=== PATIENT | female | born 1975 | race Caucasian/White ===

== ENCOUNTER 2019-05-25 10:45 | Inpatient (IN) ==
[2019-05-19 13:27] LABS: Appearance,Urine CLEAR; Bilirubin,Urine NEG (NEG); Color,Urine STRAW; Glucose,Urine (UA) NEGATIVE (NEG); Ketones,Urine NEG (NEG); Leukocyte Esterase,Urine NEG /uL (NEG); Nitrate,Urine NEG (NEG); Protein,Urine NEG (NEG); Specific Gravity,Urine 1.008 (1.000-1.035); Urine Blood NEG mg/dL (<0.03); Urobilinogen,Urine NEG (NEG)
[2019-05-19 14:21] LABS: Blood Urea Nitrogen 7 mg/dl (6-20); Carbon Dioxide 22 mmol/L (22-30); Chloride 104 mmol/L (96-108); Estimated Average Glucose(eAG) 100 mg/dL; Glomerular Filtration Rate 112; Glucose 88 mg/dL (70-105); Hemoglobin A1C 5.1 % HGB (4.0-6.0)
[2019-05-19 14:23] LABS: Basophils # (Auto) 0 K/mcL (0.0-0.3); Basophils % (Auto) 0.5 % (0.0-2.0); Eosinophils # (Auto) 0.1 K/mcL (0.0-0.7); Eosinophils % (Auto) 0.9 % (0.0-7.0); Granulocytes % (Auto) 66.7 % (38.0-78.0); Hematocrit 39.1 % (36.0-48.0); Hemoglobin 13.1 g/dL (12.0-15.0); Lymphocytes # (Auto) 2.5 K/mcL (1.5-4.8); Lymphocytes % (Auto) 26.4 % (15.5-49.0); Mean Cell Volume 89.3 fL (80.0-100.0); Mean Corpuscular HGB Conc 33.4 g/dL (31.0-36.0); Mean Platelet Volume 8.6 fL (7.4-10.4); Monocytes # (Auto) 0.5 K/mcL (0.1-0.9); Monocytes % (Auto) 5.5 % (1.0-12.0); Platelet Count 226 K/mcL (140-440); RBC 4.38 M/mcL (4.00-5.20); Red Cell Distribution Width 14.3 % (11.5-14.5); WBC 9.4 K/mcL (4.5-11.0)
[~2019-05-25 10:45] MED LIST: 0.9 % SODIUM CHLORIDE 9 ML, KETOROLAC 30 MG, ROPIVACAINE HCL/PF 49.5 ML, EPINEPHrine 0.... IJ SCH; CELECOXIB 200 MG CAPSULE PO SCH; IPRATROPIUM/ALBUTEROL 3 ML AMPUL.NEB NEB PRN; PREGABALIN 75 MG CAPSULE PO SCH; SCOPOLAMINE 1 PATCH PATCH TOPICAL PRN; ceFAZolin 2 GM in DEXTROSE 5% IN WATER 50 ML IV SCH
[2019-05-25] MEDS ORDERED: SCOPOLAMINE 1 PATCH PATCH TOPICAL PRN (11:00)
[2019-05-25] MEDS ORDERED: IPRATROPIUM/ALBUTEROL 3 ML AMPUL.NEB NEB PRN ×2 (11:00→14:40)
[2019-05-25] MEDS ORDERED: TRANEXAMIC ACID 1,000 MG/10 ML VIAL IV ONE ×2 (14:00→15:41)
[2019-05-25] MEDS ORDERED: ROPIVACAINE HCL/PF 20 ML VIAL IJ ONE (14:00)
[2019-05-25] MEDS ORDERED: MIDAZOLAM 2 MG/2 ML VIAL IV ONE (14:00)
[2019-05-25] MEDS ORDERED: GLYCOPYRROLATE 0.2 MG/ML VIAL IV ONE (14:00)
[2019-05-25] MEDS ORDERED: ONDANSETRON 4 MG/2 ML VIAL IV ONE (14:00)
[2019-05-25] MEDS ORDERED: PROPOFOL 200 MG/20 ML VIAL IV ONE (14:00)
[2019-05-25] MEDS ORDERED: fentaNYL 100 MCG/2 ML VIAL IV ONE (14:00)
[2019-05-25] MEDS ORDERED: LIDOCAINE HCL/PF 100 MG/5 ML SYRINGE IV ONE (14:00)
[2019-05-25] MEDS ORDERED: DEXAMETHASONE 10 MG/ML VIAL IV ONE (14:00)
[2019-05-25] MEDS ORDERED: PHENYLEPHRINE 10 MG/ML VIAL IV ONE (14:00)
[2019-05-25] MEDS ORDERED: KETAMINE 100 MG/ML ML IV ONE (14:00)
[2019-05-25] MEDS ORDERED: METOPROLOL TARTRATE 5 MG/5 ML VIAL IV PRN (14:40)
[2019-05-25] MEDS ORDERED: fentaNYL 100 MCG/2 ML VIAL IV PRN (14:40)
[2019-05-25] MEDS ORDERED: ACETAMINOPHEN 1,000 MG/100 ML BOTTLE IV ONE (14:40)
[2019-05-25] MEDS ORDERED: METHOCARBAMOL 1,000 MG/10 ML VIAL IV PRN (14:40)
[2019-05-25] MEDS ORDERED: LABETALOL 5 MG/ML ML IV PRN (14:40)
[2019-05-25] MEDS ORDERED: FLUMAZENIL 0.1 MG/ML ML IV PRN (14:40)
[2019-05-25] MEDS ORDERED: NALOXONE HCL 0.4 MG/ML VIAL IV PRN (14:40)
[2019-05-25] MEDS ORDERED: LACTATED RINGERS 250 ML IV PRN (14:40)
[2019-05-25] MEDS ORDERED: ONDANSETRON 4 MG/2 ML VIAL IV PRN ×2 (14:40→15:41)
[2019-05-25] MEDS ORDERED: BENZOCAINE/MENTHOL 1 LOZENGE PO PRN ×2 (14:40→15:41)
[2019-05-25] MEDS ORDERED: LACTATED RINGERS 1,000 ML IV SCH (14:45)
--- NOTE | 2019-05-25 15:40 | Brief Operative Note ---
Date of procedure: 05/25/19 Pre-op diagnosis: Right knee large osteochondral defect of the medial femoral condyle Post-op diagnosis: same Procedure: Right robotic assisted total knee arthroplasty Grafts/Implants: Yes (Jelly Triathlon CR 2 femur, 2 tibia, 9mm insert, 31 patella) Anesthesia: spinal, GLMA Findings: large medial femoral condyle defect Complications: none Surgeon: Andrew Sousa Popcorn Attendant: Eric Almanza Estimated blood loss (cc): 30 Specimens Removed/Pathology: none sent Condition: stable Disposition: PACU
[2019-05-25] MEDS ORDERED: HYDROmorphone 2 MG/ML VIAL IV PRN (15:41)
[2019-05-25] MEDS ORDERED: FLEETS ADULT ENEMA PR PRN (15:41)
[2019-05-25] MEDS ORDERED: ACETAMINOPHEN 325 MG TABLET PO PRN (15:41)
[2019-05-25] MEDS ORDERED: MAGNESIUM HYDROXIDE 30 ML ORAL.SUSP PO PRN (15:41)
[2019-05-25] MEDS ORDERED: BISACODYL 10 MG SUPP.RECT PR PRN (15:41)
[2019-05-25] MEDS ORDERED: POLYETHYLENE GLYCOL 3350 17 GM PACKET PO PRN (15:41)
[2019-05-25] MEDS ORDERED: BUTALB/ACETAMINOPHEN/CAFFEINE 1 TABLET PO PRN (15:57)
[2019-05-25] MEDS: PROMETHAZINE 25 MG/ML VIAL IV PRN ×2 (16:33→16:47)
--- NOTE | 2019-05-25 16:34 | XRay Report ---
CLINICAL INFORMATION: Postsurgical follow-up TECHNIQUE: AP, lateral, and patellar views COMPARISON: None. FINDINGS: Status post right total knee arthroplasty. Anatomic alignment demonstrated. There is postsurgical soft tissue and intra-articular gas IMPRESSION: Status post right total knee arthroplasty Interpreted and Authenticated by: Prabhu Vargas 05/25/19
[2019-05-25] MEDS ORDERED: MEPERIDINE 25 MG/ML SYRINGE IV PRN (16:35)
[2019-05-25] MEDS: KETOROLAC 30 MG/ML VIAL IV SCH (18:20)
[2019-05-25] MEDS: 0.9 % SODIUM CHLORIDE 1,000 ML IV SCH (18:53)
[2019-05-25] MEDS: ASPIRIN 81 MG TAB.CHEW PO SCH (20:45)
[2019-05-25] MEDS: oxyCODONE HCL 5 MG TABLET PO PRN (20:45)
[2019-05-25] MEDS: Budesonide/Formoterol Fumarate [Symbicort] 160-4.5 mcg Inhaler INH SCH (20:45)
[2019-05-25] MEDS: DOCUSATE SODIUM 100 MG CAPSULE PO SCH (20:45)
[2019-05-25] MEDS ORDERED: SENNOSIDES 1 TABLET PO SCH (21:00)
[2019-05-25] MEDS ORDERED: ALBUTEROL SULFATE 1 PUFF INHALER INH PRN (21:00)
[2019-05-25] MEDS: ceFAZolin 1 GM VIAL IV SCH (21:24)
[2019-05-25] MEDS: 0.9 % SODIUM CHLORIDE 10 ML SYRINGE IV SCH (21:25)
[2019-05-26] MEDS: KETOROLAC 30 MG/ML VIAL IV SCH ×2 (00:03→05:55)
[2019-05-26] MEDS: oxyCODONE HCL 5 MG TABLET PO PRN ×2 (04:06→08:55)
[2019-05-26] MEDS: 0.9 % SODIUM CHLORIDE 10 ML SYRINGE IV SCH (05:56)
[2019-05-26] MEDS: ceFAZolin 1 GM VIAL IV SCH (05:56)
--- NOTE | 2019-05-26 07:24 | Discharge Summary ---
Providers - Providers Patient information: Note initiated : 05/26/19 at 7:15 am Service Date, if different from initiated Date: [] Patient: Mason Cooper 44 y/o F admitted on 05/25/19 for Right Total Knee Arthroplasty Kem. Chief Complaint: [] Discharge date: 05/26/19 Hospitalization Hospital Course: Pt was admitted for a R TKA. Pt admitted day of admission. PT was transferred to the floor for IV pain meds, IV abx, and PT. Py discharged post-op day 1. Will take ASA for DVT prophylaxis. f/u in 2 weeks. Discharge diagnosis: R knee OA Exam - Exam Clean and dry: Yes Weight bearing status: as tolerated Ortho Discharge - TKA - Patient Instructions Diet: Regular Diet Activity: activity as tolerated Total Knee Protocol: For Total Knee: Start ROM MORRIS with stationary bike or rocking chair. Work on gaining full extension of knee. Posterior dislocation precautions provided. Hip abductor strengthening and gait training instructions provided. Apply Cryocuff as instructed. Dressing Care: May shower in 2 days - Follow Up Plan Follow Up Appointments: Eric Almanza PA-C [Physician Transcribing Machine Operator] - 06/10/19 9:20 am Disposition: Home, Self-Care Prognosis: Good Rehab Potential: Good Overall status at discharge: patient is back to baseline - Orders For Discharge Prescriptions: Aspirin 81 mg PO BID #30 tab.chew Transmission Status: Pending to [facility] oxyCODONE/APAP [Percocet 5-325 mg] 1 - 2 tab PO Q4-6H PRN #75 tab PRN Reason: Pain Prescription Printed Pending Studies Resuscitation Status Full Code Diet Consistent Carbohydrate Diet Start FriMay 252 Aspirin (Aspirin) 81 mg PO BID [facility] Last Admin: 05/25/19 20:45 Dose: 81 mg Documented by: PAULUVE Docusate Sodium (Colace) 100 mg PO BID [facility] Last Admin: 05/25/19 20:45 Dose: 100 mg Documented by: PAULUVE Hydromorphone HCl (Dilaudid) 0 mg IV Q2HP PRN PRN Reason: PAIN LEVEL > 6 Last Admin: 05/26/19 06:51 Dose: 0.5 mg Documented by: DENNIS Sodium Chloride (Sodium Chloride 0.9%) 1,000 mls @ 75 mls/hr IV .[id number] [facility] Last Admin: 05/25/19 18:53 Dose: 75 mls/hr Documented by: JUAN Ketorolac Tromethamine (Toradol) 30 mg IV Q6 [facility] Stop: 05/27/19 12:01 Last Admin: 05/26/19 05:55 Dose: 30 mg Documented by: Admin: 05/26/19 00:03 Dose: 30 mg Documented by: Admin: 05/25/19 18:20 Dose: 30 mg Documented by: JUAN Omeprazole (Prilosec) 20 mg PO ACB [facility] Last Admin: 05/26/19 06:51 Dose: 20 mg Documented by: DENNIS Oxycodone HCl (Roxicodone) 0 mg PO Q4HP PRN PRN Reason: PAIN LEVEL 3-6 Last Admin: 05/26/19 04:06 Dose: 5 mg Documented by: Admin: 05/25/19 20:45 Dose: 5 mg Documented by: JUAN Budesonide/Formoterol Fumarate [Symbicort] 160-4.5 Mcg Inhaler 1 dose INH BID [facility] Last Admin: 05/25/19 20:45 Dose: 1 dose Documented by: JUAN Senna (Senokot) 2 tab PO HS [facility] Last Admin: 05/25/19 20:45 Dose: 2 tab Documented by: JUAN Sodium Chloride (Saline Flush) 10 ml IV Q8 [facility] Last Admin: 05/26/19 05:56 Dose: Not Given Documented by: Admin: 05/25/19 21:25 Dose: Not Given Documented by: JUAN Shift Summary 05/26/19 04:42 Shift Summary by Jeanmarie Ga Pt has rested well most of the shift. Her pain has been min - oxycodone 5mg PO given x2 - last @ 0405, and scheduled IV Toradol 30mg Q 6hrs. Cryo-cuff on & off through the shift. No nausea this shift. NS infusing to her LT F/A @ 75ml/hr. Eugenio wrap RT knee - C,D,I. She has been up AMB to & from BR, and out in cooper x1 - gait very stable w/ FWW & SBA. She is voiding QS into commode bucket - PVR scan x2 < 100ml - no further PVR's required. VS- H.R. tachy 90's to low 100's - B/P sl low - all else WNL on R.A.. She is A&Ox4, calm, pleasant, & cooperative. Will D/C later today. Initialized on 05/26/19 04:42 - END OF NOTE
[2019-05-26] MEDS ORDERED: OMEPRAZOLE 20 MG CAPSULE PO SCH (07:30)
--- NOTE | 2019-05-26 07:55 | Operative Note ---
DATE OF OPERATION: 05/25/2019 PREOPERATIVE DIAGNOSIS: Right knee large medial femoral condyle osteochondral defect with resultant arthrosis. POSTOPERATIVE DIAGNOSIS: Right knee large medial femoral condyle osteochondral defect with resultant arthrosis. PROCEDURE PERFORMED: Right robotic-assisted total knee arthroplasty placing a Jelly triathlon cruciate retaining size 2 femoral component, size 2 tibial baseplate, a 9 mm X3 tibial insert with a 31 mm patellar button. SURGEON: Andrew Sousa MD UI DEVELOPER WITH ANGULAR JS: Jim Almanza PA-C. This provider's expertise and technical skill were required throughout the case. The PA assisted with preoperative coordination, intraoperative retraction, wound closure, dressing and splint application, as well as postoperative documentation and care coordination. ANESTHESIA: Spinal plus general. DRAINS: None. SPECIMENS: Bone cuts, which were discarded. BLOOD LOSS: 30 mL POSTOPERATIVE CONDITION: Stable. INDICATIONS FOR SURGERY: This is a 44-year-old female who I did an arthroscopy on a number of years ago. At that time she was found to have a large unstable osteochondral defect for which we removed the loose fragment; however, this left her with a large defect in her weightbearing medial femoral condyle. We told her to try and live with it as long as possible due to her young age. She presented now with pain that was limiting her ability to walk and quality of life. FINDINGS AT SURGERY: She did have a large medial femoral condyle defect off the weightbearing surface. Post implantation showed good limb alignment, patellar tracking, and joint stability. PROCEDURE IN DETAIL: The patient had been seen preoperatively and informed consent had been obtained after discussion of risks and benefits of surgery. Risks including, but not limited to, bleeding; infection; injury to nerves, blood vessels, and other surrounding structures; anesthetic risks; incomplete or no resolution of symptoms; DVT and pulmonary embolus risks; stiffness; swelling; instability; pain, possibility of needing revision surgery, particularly given her young age. She understood these risks and wished to proceed. Correct operative site was marked and then patient was taken to the operating room after spinal anesthesia was given. LMA general was performed and then the right lower extremity was carefully prepped and draped in normal sterile fashion. A timeout was performed verifying patient name, operative site, and plan. Ioban was used to cover all skin surfaces. The Esmarch was used to exsanguinate the extremity and tourniquet was inflated. A midline incision was made with a scalpel through skin and subcutaneous tissue. IrriSept was irrigated and then a medial parapatellar arthrotomy made. Subperiosteal exposure was done of the anterior medial tibia and then anterior horn of the ACL was transected. Femoral and tibial checkpoints were placed. I also did a freehand resection of the patella. Her original thickness was 22 mm thick post-resection was 12, a cut protector was placed on the patella and then two stab incisions were made over the femur and two over the tibia and bicortical pins placed and the arrays were connected. Hip center of rotation was checked and then a green probe was used to identify the medial and lateral malleolus as well as to double check our checkpoints. The blue probe was then used to do our mapping. After this was completed, the rongeur was used to remove osteophyte; however, this was very limited. Spoons were then used to check our flexion, extension gaps. We then adjusted implant position to get 17 mm gaps medially in flexion and extension. We also had 17 mm laterally in flexion laterally. We had 18 in extension. Once we verified that we liked our component position, we then used a robotic arm to do the bone cuts. We then prepared the tibia sizing this to a size 2 and it was externally rotated as bone coverage would allow. We pinned into place and a boss reamer and keel punch were used to prepare and then a keeled tibial trial placed. We did a curved osteotome to check for posterior osteophytes and then the femoral trial size 2 was placed. This was placed flush laterally and then pinned and peg holes were drilled. We then placed a 9 insert trial which was very tight. The knee was taken into extension. We were about 4-5 degrees short of full . We then prepared the patella with a 31 medializing this maximally. We then did a limited lateral facetectomy. The patella was then checked for tracking and it tracked very good, so we removed trial implants. Definitive implants were opened. The joint was filled with IrriSept and after a minute we pulse lavaged copiously with saline and then antibiotic Palacos was mixed. CO2 gun was used to clean and dry the cancellous bone surface and then we cemented the tibia. Excess cement was removed. We then cemented the femur and excess cement removed. The 9 insert trial was placed and the patellar button was cemented. The knee was held still in full extension while cement hardened. We removed checkpoints and removed our arrays and pins. We also injected pain cocktail in the pericapsular and subcutaneous tissues. We then, after cement hardened, removed the trial insert, injected the remaining pain cocktail in the posteromedial capsule. IrriSept was irrigated into the tray and then a 9 insert was impacted. We carefully verified it was fully seated and then knee was taken through range of motion and was very stable and she had full range of motion. We irrigated with IrriSept, after a minute we then pulse lavaged with saline. The knee was then placed in about 45 degrees of flexion. Interrupted #2 FiberWires, two [id number] were placed at the superior medial corner of the patella. We then used interrupted #1 Vicryl for the inferior portion of the patella and running #1 Vicryl was used for patellar tendon and quad tendon. IrriSept was irrigated again and after a minute pulse lavaged with saline and then 2-0 Monocryl was used for subcutaneous and nestor for skin. Xeroform sterile dressings were applied. Tourniquet was released. The patient was awakened, extubated, and transferred to recovery in stable condition. [id number] Job ID: [id number] Doc ID: [id number] Andrew Sousa MD
[2019-05-26] MEDS: ASPIRIN 81 MG TAB.CHEW PO SCH (08:55)
[2019-05-26] MEDS: DOCUSATE SODIUM 100 MG CAPSULE PO SCH (08:56)
[2019-05-26] MEDS: Budesonide/Formoterol Fumarate [Symbicort] 160-4.5 mcg Inhaler INH SCH (08:57)
[2019-05-26] MEDS ORDERED: MONTELUKAST 10 MG TABLET PO SCH (09:00)
[2019-05-26] MEDS ORDERED: DESVENLAFAXINE SUCCINATE 50 MG PO SCH (09:00)
[2019-05-26] MEDS: 0.9 % SODIUM CHLORIDE 1,000 ML IV SCH (09:12)
== END 2019-05-26 10:50 | disposition home or self-care (01) | DRG 470 ==
LOC: MEDSUR 10:45
PROVIDERS: ADMIT Orthopaedic Surgery; ATTEND Orthopaedic Surgery